=== PATIENT | female | born 1960 | race American Indian/Alaskan Native ===

== ENCOUNTER 2019-04-15 13:16 | Outpatient (CLI) | payer OTHER ==
--- NOTE | 2019-04-16 11:18 | Magnetic Resonance Report ---
BILATERAL BREAST MR WITHOUT AND WITH GADOLINIUM INDICATION: High risk due to family history breast cancer and ovarian cancer. History of cysts. COMPARISONS: None. TECHNIQUE: Axial 1.0 mm T1 without, axial high-resolution 2.0 mm T2 and axial 1.0 mm dynamic vibrant high-resolution postcontrast T1 fat saturation sequences on a 1.5 [place] magnet. The examination was p erformed with an 8-channel dedicated [place] breast coil. Post-processing with CAD and subtraction was performed on an [employer] workstation. 18.0 cc of MultiHance was injected without incident for the c ontrast portion of the exam. Consent was obtained prior to the administration of the contrast. FINDINGS: RIGHT BREAST: Minimal background parenchymal enhancement. No mass or suspicious enhancement. A benign enhancing skin lesion of the lower outer quadrant measures 17 x 16 x 5 mm. There is focal skin thick ening and enhancement of the skin with no mass. No suspicious right axillary or right internal mammar y lymph nodes. LEFT BREAST: Minimal background parenchymal enhancement. No mass or suspicious enhancement. No suspic ious left axillary or left internal mammary lymph nodes. IMPRESSION: 1. Negative study with no suspicious finding. 2. Benign focal skin thickening of the lower outer right breast. BI-RADS Category 2: Benign Signer Name: Neno Danielson MD Signed: 04/16/2019 11:13 AM Workstation Name: [id number]
== END 2019-04-15 13:17 | disposition home or self-care (01) ==
LOC: SPVIMAG 13:16
PROVIDERS: ATTEND Surgery
DX: Z15.01 Genetic susceptibility to malignant neoplasm of breast (principal); L98.8 Other specified disorders of the skin and subcutaneous tissue; N64.89 Other specified disorders of breast; Z80.3 Family history of malignant neoplasm of breast; Z80.41 Family history of malignant neoplasm of ovary
CPT/HCPCS: A9577; C8908; 77049